=== PATIENT | male | born 1970 | race Caucasian/White ===

== ENCOUNTER 2019-08-31 13:49 | Emergency (ER) | payer OTHER, SELFPAY ==
[2019-08-31] VITALS (23 sets, daily range): BP systolic 130–158; BP diastolic 82–102; PULSE 82–105; RESP 13–34; TEMP 37.1; O2SAT 91–99
--- NOTE | ~2019-08-31 | CT_ITS ---
EXAMINATION: CT brain wo con DATE: 08/31/2019 14:46 INDICATION: Seizure. Confusion. TECHNIQUE: Computed tomography (CT) of the head was performed without intravenous contrast. The mA wa s adjusted according to patient size. Iterative reconstruction technique was employed. The dose-lengt h product was 605.33 mGy-cm. COMPARISON: None FINDINGS: There is no intracranial hemorrhage, acute infarction, or abnormal intracranial mass lesion . The ventricles are normal in size. There is mild mucosal thickening in the paranasal sinuses. The m astoid air cells are normal. The orbits are normal. IMPRESSION: 1. Normal brain. Reviewed, dictated and finalized at location A. IMPRESSION: 1. Normal brain.
--- NOTE | ~2019-08-31 | XR_ITS ---
EXAMINATION: XR chest 2V DATE: 08/31/2019 14:53 INDICATION: Cough and shortness of breath. TECHNIQUE: Frontal and lateral views of the chest were obtained. COMPARISON: None. FINDINGS: There is mild atelectasis in the lower lung zones. No pleural effusion or pneumothorax. The heart size is normal. There are prominent paracardial fat pads. IMPRESSION: 1. Mild atelectasis in the lower lung zones. Reviewed, dictated and finalized at location A.
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
[2019-08-31] MEDS: SODIUM CHLORIDE 0.9% IV 1,000 ML 999 ML IV CONT (14:13)
[2019-08-31 14:46] LABS: Basophils Percent Auto 0.4 % (0.2-1.2); Eosinophils Absolute Auto 0.2 K/mm3 (0-0.3); Eosinophils Percent Auto 2.5 % (0-4.4); Hematocrit 45.4 % (42.0-52.0); Immature Granulocyte Absolute 0.04 K/mm3 (0.00-0.031); Immature Granulocyte Percent A 0.5 % (0-0.5); Lymphocytes Absolute Auto 1.31 K/mm3 (0.9-3.2); Mean Corpuscular Hemoglobin 30.9 pg (26-34); Mean Corpuscular Volume 93.6 fl (80-100); Monocytes Absolute Auto 0.8 K/mm3 (0.1-0.6); Monocytes Percent Auto 9.8 % (2.6-8.5); Neutrophils Absolute Auto 5.4 K/mm3 (1.3-6.7); Neutrophils Percent Auto 69.8 % (45.5-73.1); Platelet Count Result 169 k/mm3 (150-375); Red Blood Count 4.85 M/mm3 (4.6-6.20); Red Cell Distribution Width 12.5 % (11.5-14.5); White Blood Count 7.7 K/mm3 (4.5-10.0)
[2019-08-31 14:56] LABS: Prothrombin Time 12.6 Seconds (11.1-14.7)
[2019-08-31 14:57] LABS: Partial Thromboplastin Time 25.4 SECONDS (22.3-36.8)
[2019-08-31 14:58] LABS: Alanine Aminotransferase 21 U/L (4-50); Albumin Level 4.5 g/dL (3.5-5.1); Alkaline Phosphatase 121 U/L (38-126); Aspartate Amino Transferase 24 U/L (17-59); Bilirubin,Total 0.3 mg/dL (0.2-1.3); Blood Urea Nitrogen 18 mg/dL (9-20); Calcium 8.6 mg/dL (8.4-10.2); Carbon Dioxide 28 mmol/L (22-30); Chloride 102 mmol/L (98-107); Creatine Kinase 235 U/L (55-170); Estimated CRCL calculation 101 ml/min; Estimated Glomerular Filt Rate > 60; Glucose 93 mg/dL (75-110); Potassium 4.2 mmol/L (3.4-5.0); Sodium 139 mmol/L (137-145)
[2019-08-31 15:10] LABS: Troponin I < 0.012 ng/mL (0.000-0.034)
--- NOTE | 2019-08-31 16:31 | PC.NURSE ---
called lab an added on oxcarbazepine
--- NOTE | 2019-08-31 17:06 | ECG_ITS ---
Measurements Intervals [place] Rate: 97 P: 46 MD: 190 QRS: 31 QRSD: 110 T: 32 QT: 335 QTc: 427 Interpretive Statements SINUS RHYTHM BASELINE ARTIFACT- II, III, AVF, V4 NORMAL ECG Electronically Signed On 09-01-2019 7:12:54 CDT by David Lawson D.O.
[2019-08-31 17:25] LABS: Add Urine Microscopic? YES; Appearance Urine Clear (Clear); Bilirubin Urine Negative (Negative); Blood Urine 1+ (Negative); Color Urine Yellow (Yellow); Glucose Urine UA Negative (Negative); Ketones Urine Trace mg/dL (Negative); Leukocyte Esterase Ur Trace LEU/UL (Negative); Mucus Urine Few /lpf; Nitrate Urine Negative (Negative); Protein Urine Negative (Negative); RBC Urine 0-2 /hpf (0-2); Specific Grav Ur 1.025 (1.001-1.035); Squamous Epithelial Cell Urine Moderate /hpf (Few); Urobilinogen Urine Negative mg/dL (<2.0); WBC Urine 0-3 /hpf
[2019-08-31 17:54] LABS: Troponin I < 0.012 ng/mL (0.000-0.034)
[2019-08-31 17:55] LABS: Amphetamine Screen Urine Negative (Negative); Barbiturate Screen Urine Negative (Negative); Benzodiazepines Screen Urine Negative (Negative); Cannabinoid Screen Urine Negative (Negative); Cocaine Screen Urine Negative (Negative); Methadone Screen Urine Negative (Negative); Opiate Screen Urine Negative (Negative); Phencyclidine Screen Urine Negative (Negative)
[2019-09-03 00:09] LABS: Oxcarbazepine 12.6 mcg/mL (8.0-35.0)
== END 2019-08-31 18:27 | disposition home or self-care (01) ==
PROVIDERS: Emergency Provider Emergency Medicine
DX: R55 Syncope and collapse (principal); G40.909 Epilepsy, unspecified, not intractable, without status epilepticus; F17.290 Nicotine dependence, other tobacco product, uncomplicated
CPT/HCPCS: 36415; 70450; 71046; 80053; 80183; 80307; 81001; 82550; 83605; 84484; 85025; 85610; 85730; 93005; 96360; 99284; J7030

== ENCOUNTER 2023-07-23 08:53 | Outpatient (CLI) | payer OTHER, SELFPAY ==
[2023-07-23 13:01] LABS: Basophils Absolute Auto 0.1 K/mm3 (0.0-0.1); Basophils Percent Auto 0.6 % (0.2-1.2); Eosinophils Absolute Auto 0.3 K/mm3 (0-0.3); Hematocrit 47.8 % (42.0-52.0); Hemoglobin 15.8 g/dL (14.0-18.0); Immature Granulocyte Absolute 0.03 K/mm3 (0.00-0.031); Immature Granulocyte Percent A 0.4 % (0-0.5); Lymphocytes Absolute Auto 2.02 K/mm3 (0.9-3.2); Lymphocytes Percent Auto 25.3 % (18.3-44.2); Mean Corpuscular HGB Conc 33.1 g/dl (32-36); Mean Corpuscular Hemoglobin 31.5 pg (26-34); Mean Corpuscular Volume 95.2 fl (80-100); Mean Platelet Volume 10.9 fl (7.4-10.4); Monocytes Absolute Auto 0.6 K/mm3 (0.1-0.6); Neutrophils Absolute Auto 4.9 K/mm3 (1.3-6.7); Neutrophils Percent Auto 61.7 % (45.5-73.1); Platelet Count Result 227 k/mm3 (150-375); Red Blood Count 5.02 M/mm3 (4.6-6.20); Red Cell Distribution Width 12.9 % (11.5-14.5)
[2023-07-23 13:40] LABS: Alanine Aminotransferase 31 U/L (6-50); Albumin Level 4.5 g/dL (3.5-5.1); Alkaline Phosphatase 119 U/L (38-126); Anion Gap 5 mmol/L (8-16); Aspartate Amino Transferase 40 U/L (17-59); Bilirubin,Total 0.6 mg/dL (0.2-1.3); Blood Urea Nitrogen 14 mg/dL (9-20); Calcium 9.4 mg/dL (8.4-10.2); Carbon Dioxide 33 mmol/L (22-30); Chloride 104 mmol/L (98-107); Cholesterol 317 mg/dL (0-200); Estimated Glomerular Filt Rate > 60; Glucose 105 mg/dL (65-110); HDL Direct 51 mg/dL; Potassium 3.9 mmol/L (3.4-5.0); Sodium 142 mmol/L (137-145); Triglycerides 226 mg/dL (<150)
[2023-07-23 13:51] LABS: LDL Cholesterol Direct 206 mg/dL
[2023-07-26 09:24] LABS: PSA, Free 0.22 ng/mL; PSA, Total 0.6 ng/mL (<=4.0)
[2023-07-26 23:55] LABS: Vitamin D 1,25 (OH)2 Total 36 pg/mL (18-72); Vitamin D2 1,25 (OH)2 <8 pg/mL; Vitamin D3 1,25 (OH)2 36 pg/mL
== END 2023-07-23 08:54 | disposition home or self-care (01) ==
LOC: ANHGOSHLAB 08:54
PROVIDERS: PCP Family Medicine; Visit Provider Nurse Practitioner Family
DX: E78.2 Mixed hyperlipidemia (principal); Z12.5 Encounter for screening for malignant neoplasm of prostate; E55.9 Vitamin D deficiency, unspecified; I10 Essential (primary) hypertension; Z00.00 Encounter for general adult medical examination without abnormal findings
CPT/HCPCS: 36415; 80053; 80061; 82652; 84153; 84154; 84443; 85025

== ENCOUNTER 2025-01-15 13:04 | Outpatient (CLI) | payer OTHER, SELFPAY ==
--- NOTE | ~2025-01-15 | XR_ITS ---
EXAM: XR knee RT min 4V DATE: 01/15/2025 13:19 HISTORY: M25.561 - Pain in right knee . COMPARISON: None available. FINDINGS: Normal mineralization. No fracture or dislocation. No lytic or blastic lesion. Mild tricom partmental osteophytosis. No erosion or periosteal change. Soft tissues within normal limits. IMPRESSION: Mild tricompartmental right knee osteoarthritis. Reviewed, dictated and finalized at location K.
== END 2025-01-15 13:05 | disposition home or self-care (01) ==
PROVIDERS: PCP Nurse Practitioner Family; Visit Provider Nurse Practitioner Family
DX: M25.561 Pain in right knee (principal); W19.XXXA Unspecified fall, initial encounter
CPT/HCPCS: 73564

== ENCOUNTER 2025-01-27 09:38 | Outpatient (RCR) | payer OTHER, SELFPAY ==
--- NOTE | 2025-01-27 10:59 | OPREHPOC ---
Outpatient Therapy Plan of Care This is a Multidisciplinary Plan of Care that may contain components documented by all disciplines (PT, OT, and ST.) PT Problem 1 PT Problem #1 Knowledge Deficit PT Goal 1 Goal / Goal Update 1. Patient to demonstrate independence with HEP for improved self-reliance of symptom management. Target Visit 4 PT Problem 2 PT Problem #2 Pain PT Goal 1 Goal / Goal Update 1. Patient to decrease subjective reports of pain to <4/10 for improved ADL tolerance. 2. Pt will increase LEFS score by at least 9 points in order to demonstrate the minimal clinically important difference (MCID) in functional improvement. Target Visit 6 PT Problem 3 PT Problem #3 Impaired Flexibility PT Goal 1 Goal / Goal Update 1. - Patient will demonstrate an increase in hamstring flexibility, improving passive knee extension in the 90/90 position from to within -35 ? of full extension to allow for improved sitting posture and reduced strain during gait. 2. Patient to demonstrate an increase of R knee AROM of 0-120 deg to improve mobility required for gait/stair negotiation. Target Visit 6
--- NOTE | 2025-01-27 10:59 | PTOPEVAL1 ---
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 Patient landed on right knee and twisted ankle. Patient reports his pain is the worst when he bends his knee. He also states that it hurts the most when he is laying down but it also hurts when he is up and moving. Patient has tried icing knee and taking medications. Pt received x rays showing knee OA. Reported Pain Level Pain Score 7: Self Report Assessment PT Clinical Summary Patient presents to physical therapy with a primary issue of R knee and stiffness pain since a fall landing on R knee 3 months ago. Pt has history of epilepsy and seizures and reports a learning disability with memory impairments. Patient demonstrates increased knee pain with activity, decreased mobility, abnormal posture, gait deficit, and decreased flexibility that limit their ability to perform activities of daily living and functional movements. Patient will benefit from skilled physical therapy to address the above listed deficits and return to prior level of function. Plan of Care Interventions Gait Training,Hot Pack/Cold Pack,Neuro Re- education,Therapeutic Activities,Therapeutic Exercise,Ultrasound,Other PT Services Indicated Yes Treatment Frequency and 1x week 6 visits Duration These treatments will address the objective and functional deficits as defined above. The patient will be advanced safely and appropriately in order for the patient to progress towards his/her prior level of function. Additional exercises will be introduced and as well as a comprehensive home exercise program upon discharge, if needed, ?to ensure carryover of functional gains achieved in the clinic. This treatment plan has been reviewed and agreement upon by the patient.
--- NOTE | 2025-02-04 10:23 | PCPTNOTE ---
Pt called to cx physical therapy appointment this date due to having a migraine.
--- NOTE | 2025-02-11 14:22 | PTOPDC ---
Assessment and note entered by Steve Piña, PT Evaluation Information Assessment Status Discharge - Pt Not Present Diagnosis R knee pain ICD-10 Condition Codes (PT) Pain in right knee M25.561 Onset 3 months ago Subjective Information Pt called to cancel remaining treatment sessions stating he can not afford the copays at this time. Assessment PT Clinical Summary Pt requested to be discharge from physical therapy at this. No treatments after initial evaluation were performed. Plan of Care PT Services Indicated No
== END 2025-02-11 14:48 | disposition home or self-care (01) ==
LOC: ANHGOSHPT 09:38
PROVIDERS: PCP Nurse Practitioner Family; Visit Provider Nurse Practitioner Family
DX: M25.561 Pain in right knee (principal); W19.XXXA Unspecified fall, initial encounter
CPT/HCPCS: 97110; 97161

== ENCOUNTER 2025-05-13 13:49 | Outpatient (NON) | payer OTHER, SELFPAY ==
[2025-05-13 19:15] LABS: Add Urine Microscopic? YES; Appearance Urine Clear (Clear); Glucose Urine UA Negative (Negative); Leukocyte Esterase Ur 2+ LEU/UL (Negative); Nitrate Urine Negative (Negative); Non Pathogenic Casts 0-2; Specific Grav Ur 1.017 (1.001-1.035)
== END 2025-05-13 13:50 | disposition home or self-care (01) ==
LOC: ANHGOSHLAB 13:49
PROVIDERS: PCP Family Medicine; Visit Provider Nurse Practitioner Family
DX: R39.9 Unspecified symptoms and signs involving the genitourinary system (principal)
CPT/HCPCS: 81001; 87086; 87186